=== PATIENT | female | born 1995 | race Caucasian/White ===

== ENCOUNTER 2023-06-25 10:03 | Emergency (ER) | payer OTHER ==
[~2023-06-25] VITALS: Ht 167.6 cm; Wt 72.1 kg
[2023-06-25 10:07] VITALS: BP 119/72; PULSE 80; RESP 16; TEMP 97.3; O2SAT 100
[2023-06-25 13:50] LABS: BASOPHILS % (AUTO) 0.6 % (0.0-2.0); EOSINOPHILS # (AUTO) 0.2 K/uL (0-0.4); EOSINOPHILS % (AUTO) 2.5 % (0.0-4.0); HEMATOCRIT 42.6 % (36-48); HEMOGLOBIN 14.3 g/dL (12.0-16.0); LYMPHOCYTES # (AUTO) 3.1 K/uL (2.5-16.5); LYMPHOCYTES % (AUTO) 49.6 % (20.5-51.1); MEAN CORPUSCULAR HEMOGLOBIN 30 pg (27-31); MEAN CORPUSCULAR HGB CONC 34 g/dL (33-37); MEAN CORPUSCULAR VOLUME 88.5 fL (80-94); MONOCYTES # (AUTO) 0.2 K/uL (0.8-1.0); MONOCYTES % (AUTO) 3.6 % (1.7-9.3); NEUTROPHILS # (AUTO) 2.7 K/uL (1.8-7.7); NEUTROPHILS % (AUTO) 43.7 % (42.2-75.2); PLATELET COUNT (AUTO) 274 K/uL (140-450); RED BLOOD CELL COUNT(AUTO) 4.82 MIL/uL (4.20-5.40); RED CELL DISTRIBUTION WIDTH 13.1 % (11.6-13.7); WHITE BLOOD COUNT (AUTO) 6.3 K/uL (4.8-10.8)
[2023-06-25 14:21] LABS: ALBUMIN 4.2 g/dL (3.4-5.0); ANION GAP 12.8 (8-16); CALCIUM 9.5 mg/dL (8.5-10.1); CARBON DIOXIDE 27.2 mmol/L (21-32); CREATININE 0.7 mg/dL (0.6-1.3); TOTAL BILIRUBIN 0.5 mg/dL (0.0-1.0); TOTAL PROTEIN, SERUM 8.3 g/dL (6.4-8.2)
[2023-06-25] MEDS ORDERED: HYDR-2734 TP (15:07)
[2023-06-25] MEDS ORDERED: DOCU-299 PO (15:07)
[2023-06-25 15:19] VITALS: O2SAT 100
== END 2023-06-25 16:01 | disposition home or self-care (01) ==
LOC: MED 10:03
DX: K64.9 Unspecified hemorrhoids (principal); K59.00 Constipation, unspecified; Z79.899 Other long term (current) drug therapy
CPT/HCPCS: 36415; 80053; 81002; 81025; 85025; 99283